=== PATIENT | male | born 1950 | race Caucasian/White ===

== ENCOUNTER 2020-10-06 16:01 | Inpatient (IN) | payer OTHER ==
[~2020-10-06] VITALS: Ht 162.6 cm; Wt 82.9 kg
[2020-10-06 17:01] LABS: BASOPHILS ABSOLUTE AUTO 0.07 K/mm3 (0.00-0.23); BASOPHILS PERCENT AUTO 1 % (0-2); EOSINOPHILS ABSOLUTE AUTO 0.48 K/mm3 (0.00-0.68); EOSINOPHILS PERCENT AUTO 6 % (0-6); Hematocrit 35.2 % (37.0-53.0); Hemoglobin 11.2 g/dL (13.5-17.5); IMMATURE GRAN ABSOLUTE AUTO 0.02 K/mm3 (0.00-0.10); IMMATURE GRAN PERCENT AUTO 0 % (0-1); LYMPHOCYTES ABSOLUTE AUTO 1.56 K/mm3 (0.84-5.20); LYMPHOCYTES PERCENT AUTO 18 % (21-46); MONOCYTES ABSOLUTE AUTO 0.75 K/mm3 (0.16-1.47); MONOCYTES PERCENT AUTO 9 % (4-13); Mean Corpuscular HGB 32.4 pg (26.0-34.0); Mean Corpuscular HGB Conc 31.8 g/dL (31.5-36.5); Mean Corpuscular Volume 102 fL (80-100); Mean Platelet Volume 9.7 fL (9.1-12.4); NEUTROPHILS ABSOLUTE AUTO 5.72 K/mm3 (1.96-9.15); NEUTROPHILS PERCENT AUTO 67 % (41-73); Platelet Count 324 K/mm3 (150-400); RDW Coefficient Variation 16.1 % (11.7-14.2); RDW Standard Deviation 60.7 fL (35.1-46.3); Red Blood Cell Count 3.46 M/mm3 (4.30-5.90)
[2020-10-06 18:07] LABS: Albumin, Blood 3.4 g/dL (3.4-5.0); Albumin/Globulin Ratio 0.9 (0.8-1.8); Bilirubin, Total 0.3 mg/dL (0.1-1.0); Bun/Creatinine Ratio 12.2 (12.0-20.0); Calcium, Blood 8.6 mg/dL (8.5-10.1); Creatinine, Blood 5.58 mg/dL (0.60-1.20); Globulin, Blood 3.9 g/dL (2.2-4.0); Potassium, Blood 7.3 mmol/L (3.5-5.5); Total Protein, Blood 7.3 g/dL (6.4-8.2)
[2020-10-06] MEDS ORDERED: TRAM50 PO (19:05)
[2020-10-06] MEDS ORDERED: ATOR40TA PO (19:05)
[2020-10-06] MEDS ORDERED: EFFEXOR XR37.5 MG PO (19:06)
[2020-10-06] MEDS ORDERED: ALLO100 PO (19:33)
[2020-10-06] MEDS ORDERED: Aspir 8181 MG PO (19:33)
[2020-10-06] MEDS ORDERED: Hair, Skin & N1 EACH PO (19:33)
[2020-10-06] MEDS ORDERED: FERSU300 PO (19:33)
[2020-10-06] MEDS ORDERED: CYCL10 PO (19:33)
[2020-10-06] MEDS ORDERED: OMEP20ER PO (19:34)
[2020-10-06] MEDS ORDERED: MIRALAX17 GM PO (19:34)
[2020-10-06] MEDS ORDERED: DOCU100 PO (19:34)
[2020-10-06] MEDS ORDERED: PRED5 PO (19:34)
[2020-10-06] MEDS ORDERED: OXYB5 PO (19:34)
[2020-10-06] MEDS ORDERED: MOME.1TO TOP (19:35)
[2020-10-06] MEDS ORDERED: TRESIBA100 UNIT/2 SC (19:35)
[2020-10-07 03:41] LABS: BASOPHILS ABSOLUTE AUTO 0.08 K/mm3 (0.00-0.23); BASOPHILS PERCENT AUTO 1 % (0-2); EOSINOPHILS ABSOLUTE AUTO 0.42 K/mm3 (0.00-0.68); EOSINOPHILS PERCENT AUTO 5 % (0-6); Hematocrit 34.9 % (37.0-53.0); Hemoglobin 10.7 g/dL (13.5-17.5); IMMATURE GRAN ABSOLUTE AUTO 0.02 K/mm3 (0.00-0.10); IMMATURE GRAN PERCENT AUTO 0 % (0-1); LYMPHOCYTES ABSOLUTE AUTO 1.43 K/mm3 (0.84-5.20); LYMPHOCYTES PERCENT AUTO 17 % (21-46); MONOCYTES ABSOLUTE AUTO 0.79 K/mm3 (0.16-1.47); MONOCYTES PERCENT AUTO 10 % (4-13); Mean Corpuscular HGB 31.7 pg (26.0-34.0); Mean Corpuscular HGB Conc 30.7 g/dL (31.5-36.5); Mean Corpuscular Volume 103 fL (80-100); Mean Platelet Volume 9.3 fL (9.1-12.4); NEUTROPHILS PERCENT AUTO 67 % (41-73); Platelet Count 288 K/mm3 (150-400); RDW Coefficient Variation 15.8 % (11.7-14.2); RDW Standard Deviation 60.3 fL (35.1-46.3); Red Blood Cell Count 3.38 M/mm3 (4.30-5.90); White Blood Cell Count 8.24 K/mm3 (4.00-11.30)
[2020-10-07 04:01] LABS: Magnesium, Blood 2.1 mg/dL (1.6-2.4)
[2020-10-07 04:12] LABS: Albumin, Blood 2.9 g/dL (3.4-5.0); Albumin/Globulin Ratio 0.9 (0.8-1.8); Bilirubin, Total 0.4 mg/dL (0.1-1.0); Bun/Creatinine Ratio 10.9 (12.0-20.0); Calcium, Blood 8.4 mg/dL (8.5-10.1); Creatinine, Blood 4.96 mg/dL (0.60-1.20); Globulin, Blood 3.4 g/dL (2.2-4.0); Phosphorus, Blood 4.7 mg/dL (2.5-4.9); Potassium, Blood 6.3 mmol/L (3.5-5.5); Total Protein, Blood 6.3 g/dL (6.4-8.2)
--- NOTE | 2020-10-07 05:06 | NUR ---
SHIFT SUMMARY S/P HYPERKALEMIA, PT HAD DIALYSIS AT THE BEDSIDE, TOOK OFF 1L OF FLUID, K+ DOWN TO 6.3 TRENDING IN THE RIGHT DIRECTION, DR LEARY UPDATED ON MOST RECENT CRITICAL K+ VALUE, PT IS EXPECTED TO GO IN FOR ANOTHER ROUND OF DIALYSIS FIRST THING IN THE MORNING, PT STABLE AT THIS TIME, A/O X4, VSS. NO COMPLAINTS FROM PT, NO ACUTE EVENTS THIS SHIFT. CALL LIGHT IN REACH, WILL CTM AND REPORT TO DAY RN.
--- NOTE | 2020-10-07 09:14 | NUR ---
pt in dialysis
--- NOTE | 2020-10-07 12:03 | NUR ---
DIALYSIS WAS HAVING TROUBLE GETTING THE HD ORDER SET TO COME UP ON THE COMPUTER. GOT THE PT ON AND CALLED IT SUPPORT AND THEY GOT IT UP FOR ME.
--- NOTE | 2020-10-07 13:56 | NUR ---
PT BACK TO ROOM FROM DIALYSIS. SITTING ON EDGE OF BED, EATING LUNCH.
--- NOTE | 2020-10-07 14:19 | NUR ---
PT AMBULATED TO RESTROOM AND EMPTIED UROSTOMY.
--- NOTE | 2020-10-07 14:24 | NUR ---
PT BACK FROM CT.
--- NOTE | 2020-10-07 16:16 | NUR ---
TECH IN COMPLETING DOPPLER OF FISTULA PER ORDERS.
--- NOTE | 2020-10-07 17:59 | NUR ---
SUMMARY NO ACUTE CHANGES T/O SHIFT. PT HAD DIALYSIS THIS SHIFT AND DOPPLER OF FISTULA. AMBULATED TO RESTROOM W/CANE AND SBA TO EMPTY UROSTOMY APPLIANCE. L FOOT PAINFUL. MEDICATED PER ORDERS W/TRAMADOL AND TYLENOL W/LITTLE IMPROVEMENT. APPLIED ICE FOR COMFORT W/ NO RELIEF. CALLED DR DE LA TORRE AND OBTAINED OT ORDER FOR 1 TAB NORCO. TALKING ON PHONE AT THIS TIME. [facility] REQUIRED NO COVERAGE T/O SHIFT. TOLERATING DIET. CALL LIGHT IN REACH.
[2020-10-08 03:40] LABS: BASOPHILS ABSOLUTE AUTO 0.08 K/mm3 (0.00-0.23); BASOPHILS PERCENT AUTO 1 % (0-2); EOSINOPHILS ABSOLUTE AUTO 0.41 K/mm3 (0.00-0.68); EOSINOPHILS PERCENT AUTO 6 % (0-6); Hematocrit 36.1 % (37.0-53.0); Hemoglobin 11.4 g/dL (13.5-17.5); Mean Corpuscular HGB 32.4 pg (26.0-34.0); Mean Corpuscular HGB Conc 31.6 g/dL (31.5-36.5); Mean Corpuscular Volume 103 fL (80-100); Mean Platelet Volume 9.3 fL (9.1-12.4); Platelet Count 290 K/mm3 (150-400); RDW Coefficient Variation 15.7 % (11.7-14.2); RDW Standard Deviation 59.1 fL (35.1-46.3); Red Blood Cell Count 3.52 M/mm3 (4.30-5.90); White Blood Cell Count 7.13 K/mm3 (4.00-11.30)
[2020-10-08 03:41] LABS: IMMATURE GRAN ABSOLUTE AUTO 0.03 K/mm3 (0.00-0.10); IMMATURE GRAN PERCENT AUTO 0 % (0-1); LYMPHOCYTES ABSOLUTE AUTO 1.69 K/mm3 (0.84-5.20); LYMPHOCYTES PERCENT AUTO 24 % (21-46); MONOCYTES ABSOLUTE AUTO 0.75 K/mm3 (0.16-1.47); MONOCYTES PERCENT AUTO 11 % (4-13); NEUTROPHILS ABSOLUTE AUTO 4.17 K/mm3 (1.96-9.15); NEUTROPHILS PERCENT AUTO 59 % (41-73)
[2020-10-08 03:59] LABS: Albumin, Blood 3.1 g/dL (3.4-5.0); Anion Gap 5 mmol/L (6-16); Blood Urea Nitrogen 31 mg/dL (8-24); Bun/Creatinine Ratio 7.7 (12.0-20.0); CO2, Blood 31 mmol/L (21-32); Calcium, Blood 8.6 mg/dL (8.5-10.1); Chloride, Blood 96 mmol/L (98-108); Creatinine, Blood 4.01 mg/dL (0.60-1.20); Glomerular Filtration Rate 15 (60-); Glucose, Blood 146 mg/dL (70-99); Magnesium, Blood 2.2 mg/dL (1.6-2.4); Phosphorus, Blood 5.7 mg/dL (2.5-4.9); Potassium, Blood 5.6 mmol/L (3.5-5.5); Sodium, Blood 132 mmol/L (136-145)
--- NOTE | 2020-10-08 05:17 | NUR ---
SHIFT SUMMARY ASSUMED CARE OF PT AT 1900. PT IS A/OX4. HEART SOUNDS REGULAR, TELE SHOWS SINUS RYTHMN. LUNG SOUNDS CLEAR. PT WAS CONTIENT TO THE BATHROOM WITH HIS UROSTOMY. PT WAS ABLE TO PERFORM CARE HIMSELF. PT IS A 1P SBA WITH HIS CANE. PT FISTULA HAS BOTH THE BRUT AND THRILL. PT STATES HE ALWAYS FEELS N/T IN HIS EXTREMITIES. CALL LIGHT IN REACH, BED IN LOWEST POSTION.
--- NOTE | 2020-10-08 09:16 | NUR ---
PT ALERT AND ORIENTED X4. VERY HAPPY AND PLEASENT THIS AM. ON ROOM AIR SATING ABOVE 94%. TELE SHOWING SINUS WITH HR 80-90'S. DENIES CHEST PAIN/PRESSURE. VITAL SIGNS STABLE. BOWEL TONES PRESENT. LEFT UROSTOMY IN PLACE, DRAINING CLEAR/YELLOW URINE. MANAGED BY PATIENT. LEFT UPPER ARM FISTULA, WNL. PLAN FOR DIALYSIS TODAY. UP WITH SBA AND CANE. TAKING MEDS WHOLE WITH WATER. CALL LIGHT IN REACH. DENIES NEEDS AT THIS TIME. WILL CONTINUE TO MONITOR.
[2020-10-08] MEDS ORDERED: Acetaminophen325 M1 PO (10:30)
[2020-10-08] MEDS ORDERED: ONDA4ODT SL (10:32)
[2020-10-08] MEDS ORDERED: LOKELMA PO (10:53)
--- NOTE | 2020-10-08 11:40 | NUR ---
PT IN DIALYSIS AT THIS TIME. PLAN TO DISCHARGE AFTER DIALYSIS.
--- NOTE | 2020-10-08 15:54 | NUR ---
DISCHARGE: NO ACUTE CHANGES, PATIENT FINISHED DIALYSIS. DISCHARGE INSTRUCTIONS REVIEWED AND QUESTIONS ANSWERED. IV TAKEN OUT PER PROTOCOL. NEW MEDICATIONS CALLED INTO PHARMACY. NEICE IN TO PICK PATIENT UP. PATIENT LEFT UNIT WITH ALL PERSONAL BELONGINGS. WHEELED OUT TO CARE.
[2020-10-09 08:10] LABS: HBSAG SCREEN Negative (Negative); HEP A AB, IGM Negative (Negative); HEP B CORE AB, IGM Negative (Negative); HEP C VIRUS AB <0.1 (0.0-0.9)
== END 2020-10-08 15:50 | disposition home or self-care (01) | DRG 640 ==
LOC: ER 16:01 → PCU 16:02
PROVIDERS: Family Medicine; Internal Medicine Nephrology; Physician Assistant; ADMIT Internal Medicine
PROC: 5A1D70Z Performance of Urinary Filtration, Intermittent, Less than 6 Hours Per Day (ICD-10-PCS; principal; 2020-10-08)
DX: E87.5 Hyperkalemia (principal); N18.6 End stage renal disease; I12.0 Hypertensive chronic kidney disease with stage 5 chronic kidney disease or end stage renal disease; Z99.2 Dependence on renal dialysis; Z85.53 Personal history of malignant neoplasm of renal pelvis; Z90.5 Acquired absence of kidney; E11.22 Type 2 diabetes mellitus with diabetic chronic kidney disease; E78.5 Hyperlipidemia, unspecified; M10.9 Gout, unspecified; K21.9 Gastro-esophageal reflux disease without esophagitis; Z79.82 Long term (current) use of aspirin; Z79.899 Other long term (current) drug therapy; E87.1 Hypo-osmolality and hyponatremia; E87.70 Fluid overload, unspecified; E88.09 Other disorders of plasma-protein metabolism, not elsewhere classified; D64.9 Anemia, unspecified
CPT/HCPCS: 36415; 80053; 80069; 80074; 82947; 83735; 84100; 85025; 86317; 93005; 93010; 93990; 96372; 96374; 99285-25; A9270; G0257; G0378; J0610; J1644; J1650; J1815

== ENCOUNTER 2020-10-12 07:12 | Observation (INO) | payer OTHER ==
[~2020-10-12] VITALS: Ht 162.6 cm; Wt 83.4 kg
[~2020-10-12 07:12] MED LIST: ALLO100 PO; ATOR40TA PO; Acetaminophen325 M1 PO; Aspir 8181 MG PO; CYCL10 PO; DOCU100 PO; EFFEXOR XR37.5 MG PO; FERSU300 PO; Hair, Skin & N1 EACH PO; LOKELMA PO; MIRALAX17 GM PO; MOME.1TO TOP; OMEP20ER PO; ONDA4ODT SL; OXYB5 PO; PRED5 PO; TRAM50 PO; TRESIBA100 UNIT/2 SC
[2020-10-12 08:25] LABS: Calcium, Ionized (POC) 1.11 mmol/L (1.10-1.46); Chloride (POC) 97 mmol/L (98-108); Creatinine (POC) 7.1 mg/dL (0.8-1.3); Glucose (ISTAT POC) 196 mg/dL (70-99); Hemoglobin (POC) 12.2 g/dL (13.5-17.5); Sodium (POC) 133 mmol/L (135-148); Total CO2 (POC) 24 mmol/L (21-32)
--- NOTE | 2020-10-12 10:10 | NUR ---
SBAR REPORT FROM LES HARMON IN ED
[2020-10-12 12:49] LABS: Hematocrit 35.3 % (37.0-53.0); Hemoglobin 11.3 g/dL (13.5-17.5)
--- NOTE | 2020-10-12 17:10 | NUR ---
DISCHARGED HOME WITH ALL PERSONAL BELONGINGS IN PATIENT POSSESSION, AFTER HD COMPLETED. FISTULA WRAPPED WITH SIGNS OF BLEEDING. TEACHBACK METHOD UTILIZED. PATIENT VERBALIZED UNDERSTANDING AND ALL QUESTIONS WERE ANSWERED. CASE MANAGEMENT NOTIFIED AT 1100 THAT OUTPT DIALYSIS HAS NOT BEEN ABLE TO BE SET UP BY PATIENT. PATIENT STATES HE TRIED TO ARRANGE HD WITH [facility] FOR ONE MONTH PRIOR TO COMING TO [place]. PATIENT STATES HE WILL NEED TO COME BACK SUNDAY AND SUNDAY, AND WILL RETURN TO [place] SUNDAY.
== END 2020-10-12 17:15 | disposition home or self-care (01) ==
LOC: ER 07:12 → MEDS 07:13
PROVIDERS: Emergency Medicine; Internal Medicine Nephrology; ADMIT Internal Medicine
DX: I12.0 Hypertensive chronic kidney disease with stage 5 chronic kidney disease or end stage renal disease (principal); E11.22 Type 2 diabetes mellitus with diabetic chronic kidney disease; N18.6 End stage renal disease; D63.1 Anemia in chronic kidney disease; K21.9 Gastro-esophageal reflux disease without esophagitis; M10.9 Gout, unspecified; E87.1 Hypo-osmolality and hyponatremia; E87.6 Hypokalemia; N32.81 Overactive bladder; D50.9 Iron deficiency anemia, unspecified; G89.29 Other chronic pain; Z79.891 Long term (current) use of opiate analgesic; Z99.2 Dependence on renal dialysis; Z85.528 Personal history of other malignant neoplasm of kidney; Z90.5 Acquired absence of kidney; Z79.52 Long term (current) use of systemic steroids; Z79.82 Long term (current) use of aspirin; Z79.4 Long term (current) use of insulin; Z92.21 Personal history of antineoplastic chemotherapy; Z93.6 Other artificial openings of urinary tract status
CPT/HCPCS: 36415; 80047; 82947; 85014; 85018; 99284; A9270; G0257

== ENCOUNTER 2020-10-14 07:51 | Emergency (ER) | payer OTHER ==
[~2020-10-14] VITALS: Ht 162.6 cm; Wt 113.4 kg
[2020-10-14 09:00] LABS: Calcium, Ionized (POC) 1.09 mmol/L (1.10-1.46); Chloride (POC) 93 mmol/L (98-108); Creatinine (POC) 6.9 mg/dL (0.8-1.3); Glucose (ISTAT POC) 194 mg/dL (70-99); Hemoglobin (POC) 11.6 g/dL (13.5-17.5); Potassium (POC) 4.7 mmol/L (3.5-5.5); Sodium (POC) 129 mmol/L (135-148); Total CO2 (POC) 25 mmol/L (21-32)
== END 2020-10-14 12:19 | disposition home or self-care (01) ==
LOC: ER 07:51
PROVIDERS: Emergency Medicine
DX: E11.22 Type 2 diabetes mellitus with diabetic chronic kidney disease (principal); N18.6 End stage renal disease; I10 Essential (primary) hypertension; Z99.2 Dependence on renal dialysis
CPT/HCPCS: 80047; 85014; 99284; G0257

== ENCOUNTER 2020-10-16 06:38 | Observation (INO) | payer OTHER, MEDICARE ==
[~2020-10-16] VITALS: Ht 162.6 cm; Wt 81.7 kg
[2020-10-16 07:46] LABS: BASOPHILS ABSOLUTE AUTO 0.06 K/mm3 (0.00-0.23); BASOPHILS PERCENT AUTO 1 % (0-2); EOSINOPHILS PERCENT AUTO 3 % (0-6); Hematocrit 34.1 % (37.0-53.0); IMMATURE GRAN ABSOLUTE AUTO 0.08 K/mm3 (0.00-0.10); IMMATURE GRAN PERCENT AUTO 1 % (0-1); LYMPHOCYTES ABSOLUTE AUTO 1.55 K/mm3 (0.84-5.20); LYMPHOCYTES PERCENT AUTO 13 % (21-46); MONOCYTES ABSOLUTE AUTO 1.01 K/mm3 (0.16-1.47); MONOCYTES PERCENT AUTO 8 % (4-13); Mean Corpuscular HGB 32.1 pg (26.0-34.0); Mean Corpuscular HGB Conc 32.3 g/dL (31.5-36.5); Mean Corpuscular Volume 99 fL (80-100); Mean Platelet Volume 9.7 fL (9.1-12.4); NEUTROPHILS ABSOLUTE AUTO 8.97 K/mm3 (1.96-9.15); NEUTROPHILS PERCENT AUTO 74 % (41-73); Platelet Count 320 K/mm3 (150-400); RDW Coefficient Variation 14.6 % (11.7-14.2); RDW Standard Deviation 53.4 fL (35.1-46.3); Red Blood Cell Count 3.43 M/mm3 (4.30-5.90); White Blood Cell Count 12.07 K/mm3 (4.00-11.30)
[2020-10-16 08:09] LABS: Albumin, Blood 3.3 g/dL (3.4-5.0); Albumin/Globulin Ratio 0.8 (0.8-1.8); Bilirubin, Total 0.4 mg/dL (0.1-1.0); Bun/Creatinine Ratio 12.5 (12.0-20.0); Creatinine, Blood 6.08 mg/dL (0.60-1.20); Globulin, Blood 4.4 g/dL (2.2-4.0); Potassium, Blood 4.4 mmol/L (3.5-5.5); Total Protein, Blood 7.7 g/dL (6.4-8.2)
== END 2020-10-16 14:06 | disposition home or self-care (01) ==
LOC: ER 06:38 → MEDS 06:39
PROVIDERS: Emergency Medicine; ADMIT Internal Medicine
DX: E87.70 Fluid overload, unspecified (principal); E87.1 Hypo-osmolality and hyponatremia; N18.6 End stage renal disease; E11.22 Type 2 diabetes mellitus with diabetic chronic kidney disease; N25.81 Secondary hyperparathyroidism of renal origin; D64.9 Anemia, unspecified; K21.9 Gastro-esophageal reflux disease without esophagitis; E78.5 Hyperlipidemia, unspecified; C64.9 Malignant neoplasm of unspecified kidney, except renal pelvis; Z99.2 Dependence on renal dialysis; Z79.82 Long term (current) use of aspirin; Z79.899 Other long term (current) drug therapy; Z87.891 Personal history of nicotine dependence
CPT/HCPCS: 36415; 80053; 85025; 99284; G0257

== ENCOUNTER 2021-09-20 06:11 | Observation (INO) | payer OTHER ==
[~2021-09-20] VITALS: Ht 165.1 cm; Wt 81.0 kg
[~2021-09-20 06:11] MED LIST changes: +LEFLUNOMIDE10 M2 PO; +METHADONE HCL PO
[2021-09-20 07:56] LABS: BASOPHILS ABSOLUTE AUTO 0.07 K/mm3 (0.00-0.23); BASOPHILS PERCENT AUTO 1 % (0-2); EOSINOPHILS ABSOLUTE AUTO 0.26 K/mm3 (0.00-0.68); EOSINOPHILS PERCENT AUTO 4 % (0-6); Hematocrit 35.8 % (37.0-53.0); Hemoglobin 11.1 g/dL (13.5-17.5); IMMATURE GRAN ABSOLUTE AUTO 0.02 K/mm3 (0.00-0.10); IMMATURE GRAN PERCENT AUTO 0 % (0-1); LYMPHOCYTES ABSOLUTE AUTO 0.83 K/mm3 (0.84-5.20); LYMPHOCYTES PERCENT AUTO 12 % (21-46); MONOCYTES ABSOLUTE AUTO 0.58 K/mm3 (0.16-1.47); MONOCYTES PERCENT AUTO 8 % (4-13); Mean Corpuscular HGB 32.5 pg (26.0-34.0); Mean Corpuscular Volume 105 fL (80-100); Mean Platelet Volume 9.5 fL (9.1-12.4); NEUTROPHILS ABSOLUTE AUTO 5.13 K/mm3 (1.96-9.15); NEUTROPHILS PERCENT AUTO 75 % (41-73); Platelet Count 195 K/mm3 (150-400); RDW Standard Deviation 54.6 fL (35.1-46.3); Red Blood Cell Count 3.42 M/mm3 (4.30-5.90); White Blood Cell Count 6.89 K/mm3 (4.00-11.30)
[2021-09-20 08:08] LABS: Calcium, Blood 8.7 mg/dL (8.5-10.1); Creatinine, Blood 5.8 mg/dL (0.60-1.20); Magnesium, Blood 2.2 mg/dL (1.6-2.4); Phosphorus, Blood 3.6 mg/dL (2.5-4.9); Potassium, Blood 6.1 mmol/L (3.5-5.5)
--- NOTE | 2021-09-20 16:37 | NUR ---
DAY SHIFT SUMMARY PT WITH ESRD HERE FOR DIALYSIS, MISSED [place] ON SUNDAY, RECEIVED DIALYSIS TODAY. PT ON RA, RENAL DIET, ABLE TO TAKE MEDS WHOLE, AMBULATES USING A CANE WITH A STANDBY ASSIST TO BATHROOM. A/O. PT ORIENTED TO ROOM AND CALL LIGHT. CALL LIGHT WITHIN REACH AND ABLE TO CALL APPROPRIATELY.
--- NOTE | 2021-09-20 18:22 | NUR ---
DISCHARGE SUMMARY TELE AND IV REMOVED PRIOR TO DISCHARGE, PT DISCHARGE EDUCATION REVIEWED WITH AND SIGNED BY PT. PT TRANSPORTED DOWN ALONG WITH PERSONAL BELONGINGS VIA WHEELCHAIR TO VEHICLE.
== END 2021-09-20 18:13 | disposition home or self-care (01) ==
LOC: ER 06:11 → MEDS 06:12
PROVIDERS: Student in an Organized Health Care Education/Training Program; ADMIT Family Medicine
DX: E11.22 Type 2 diabetes mellitus with diabetic chronic kidney disease (principal); N18.6 End stage renal disease; K21.9 Gastro-esophageal reflux disease without esophagitis; E87.5 Hyperkalemia; J44.9 Chronic obstructive pulmonary disease, unspecified; D63.1 Anemia in chronic kidney disease; N25.81 Secondary hyperparathyroidism of renal origin; Z99.2 Dependence on renal dialysis; Z79.82 Long term (current) use of aspirin
CPT/HCPCS: 80048; 82947; 83735; 84100; 85025; 93005; 93010; 94640; 94664; 99285-25; A9270; G0257; G0378; J1815

== ENCOUNTER 2021-09-29 07:36 | Observation (INO) | payer OTHER ==
[~2021-09-29] VITALS: Ht 165.1 cm; Wt 81.7 kg
[2021-09-30 07:09] LABS: HBSAG SCREEN Negative (Negative); HCV AB <0.1 (0.0-0.9); HEP A AB, IGM Negative (Negative); HEP B CORE AB, IGM Negative (Negative)
== END 2021-09-29 13:25 | disposition home or self-care (01) ==
LOC: ER 07:36 → ERHOLD 07:37
PROVIDERS: Internal Medicine Nephrology; ADMIT Hospitalist
DX: E11.22 Type 2 diabetes mellitus with diabetic chronic kidney disease (principal); N18.6 End stage renal disease; K21.9 Gastro-esophageal reflux disease without esophagitis; E87.70 Fluid overload, unspecified; E78.5 Hyperlipidemia, unspecified; M10.9 Gout, unspecified; D63.8 Anemia in other chronic diseases classified elsewhere; F32.A Depression, unspecified; G89.29 Other chronic pain; Z79.891 Long term (current) use of opiate analgesic; Z99.2 Dependence on renal dialysis; Z91.15 Patient's noncompliance with renal dialysis; Z85.528 Personal history of other malignant neoplasm of kidney; Z90.5 Acquired absence of kidney; Z79.899 Other long term (current) drug therapy; Z79.82 Long term (current) use of aspirin; Z79.4 Long term (current) use of insulin
CPT/HCPCS: 80074; 86317; 99284-25; A9270; G0257; G0378

== ENCOUNTER → 2022-05-09 | Outpatient (CLI) | payer OTHER | END | disposition home or self-care (01) | LOC: LAB SHORT 18:20 | DX: N39.0 Urinary tract infection, site not specified (principal) | CPT/HCPCS: 87086 ==